=== PATIENT | female | born 1995 | race African-American/Black ===

== ENCOUNTER 2017-05-19 09:30 | Inpatient (IN) | payer MEDICAID ==
[~2017-05-19] VITALS: Ht 170.2 cm; Wt 94.3 kg
--- NOTE | ~2017-05-19 | DS ---
PATIENT:GREGOR DOWNING :89 MEDICAL RECORD: [id number] DISCHARGE SUMMARY ADMISSION DATE: 05/19/17 DISCHARGE DATE: 05/21/17 DATE OF ADMISSION: 05/19/2017 DATE OF DISCHARGE: 05/21/2017 ADMISSION DIAGNOSIS: Mild preeclampsia. DISCHARGE DIAGNOSIS: Mild clinic preeclampsia, resolved. ATTENDING: James Hinton MD PROCEDURE: Induction of labor with vaginal delivery. HISTORY OF PRESENT ILLNESS AND REASON FOR HOSPITALIZATION: See the H&P in the chart. SUMMARY OF HOSPITALIZATION: The patient was admitted and underwent induction of labor without incident. The patient has recovered well and at time of this dictation the last blood pressure is 108/57. The patient will be discharged home later today. Standard precautions have been reviewed. She will follow up in 2 weeks at [facility]. DISCHARGE MEDICATIONS: Will include ibuprofen for pain. TRANSINT:[id number] Voice Confirmation ID: [id number] DOCUMENT ID: [id number] JAMES HINTON MD at 1226 CC: [id number] DICTATION DATE: 05/21/17226 ELEMENTARY SECRETARY: 05/22/17 0003 DIS IN 05/21/17 [id number] [place] [address]
--- NOTE | ~2017-05-19 | OP ---
PATIENT NAME: GREGOR DOWNING MEDICAL RECORD: [id number] :89 LOCATION:[id number] ADMISSION DATE:05/19/17 SURGEON: JAMES HINTON MD DATE OF OPERATION: 05/19/2017 Delivery Note PREDELIVERY DIAGNOSIS: Preeclampsia at term. POSTDELIVERY DIAGNOSIS: Preeclampsia at term, mother delivered. PROCEDURE: Induction of labor with vaginal delivery. ATTENDANT: James Hinton MD ANESTHETIC: 10 cc of 1% lidocaine without epinephrine. FINDINGS: Viable female , vertex presentation, Apgars 9 and 9, weight 3035 grams. Second degree laceration with 3-0 Vicryl and 3-0 chromic repair. A 4-0 chromic used to repair perineal body. Placenta spontaneous and intact. ESTIMATED BLOOD LOSS: 350. DISPOSITION: Mother and infant recovered in the room. TRANSINT:[id number] Voice Confirmation ID: [id number] DOCUMENT ID: [id number] JAMES HINTON MD at 1821 CC: [id number] DICTATION DATE: 05/19/17 175 DROP HAMMER MECHANIC: 05/19/17 2143 ADM IN [facility] [address] [place] [address]
[2017-05-19 11:33] VITALS: BP 107/61; Ht 170.2 cm; Wt 94.3 kg
[2017-05-19 11:44] LABS: HEMATOCRIT 30.2 % (36.0-48.0); HEMOGLOBIN 9.2 g/dL (12-16); MCHC 30.5 g/dL (31.0-37.0); MCV 68.8 fL (80.0-100.0); PLATELET COUNT 168 10x3/uL (130-400); RBC 4.39 10x6/uL (4.00-5.40); RDW 15.7 % (11.5-14.5); WBC 7.6 10x3/uL (4.8-10.8)
[2017-05-19 11:47] LABS: UDS - AMPHET NEGATIVE QUAL (NEGATIVE); UDS - BARB NEGATIVE QUAL (NEGATIVE); UDS - BENZO NEGATIVE QUAL (NEGATIVE); UDS - COCAINE NEGATIVE QUAL (NEGATIVE); UDS - OPIATE NEGATIVE QUAL (NEGATIVE); UDS - PCP NEGATIVE QUAL (NEGATIVE); UDS - THC NEGATIVE QUAL (NEGATIVE)
[2017-05-19 11:59] LABS: APPEARANCE CLEAR (CLEAR); BILIRUBIN NEGATIVE (NEGATIVE); COLOR YELLOW (YELLOW); GLUCOSE NEGATIVE (NEGATIVE); KETONE NEGATIVE (NEGATIVE); NITRITE NEGATIVE (NEGATIVE); PROTEIN TRACE mg/dL (NEGATIVE); RED CELLS - URINE 0-5 /hpf (0-5); UROBILINOGEN NORMAL (NORMAL); WHITE CELLS - URINE 0-5 /hpf (0-5)
[2017-05-19 12:00] LABS: EPITHELIAL CELLS 0-5 /hpf (0-5)
[2017-05-19 12:01] LABS: ALBUMIN 2.6 g/dL (3.4-5.0); ALKALINE PHOSPHATASE 119 U/L (46-116); ALT (SGPT) 13 U/L (10-68); BILIRUBIN - INDIRECT 0.25 mg/dL (0.00-1.00); CALC OSMOLALITY 269 mosm/kg (275-300); CALCIUM 8.4 mg/dL (8.5-10.1); CARBON DIOXIDE 20.1 mmol/L (21.0-32.0); CHLORIDE - SERUM 102 mmol/L (98-107); CREATININE - SERUM 0.5 mg/dL (0.6-1.3); GLUCOSE 79 mg/dL (74-106); POTASSIUM - SERUM 3.5 mmol/L (3.5-5.1); PROTEIN - SERUM 7.1 g/dL (6.4-8.2); SODIUM 136 mmol/L (136-145); UREA NITROGEN 9 mg/dL (7-18); URIC ACID 2.8 mg/dL (2.6-7.2); eGFR NON AFRICAN AMERICAN > 90 mL/min (90-120)
[2017-05-19 12:02] LABS: BILIRUBIN - DIRECT 0.05 mg/dL (0.00-0.30)
[2017-05-19 12:04] LABS: BACTERIA MODERATE /hpf (NONE SEEN); MUCUS <1+ /lpf (NONE SEEN)
[2017-05-19 19:04] VITALS: BP 116/72
[2017-05-19 23:51] VITALS: BP 111/67
[2017-05-20 05:14] LABS: RAPID PLASMA REAGIN Non Reactive (Non Reactive)
[2017-05-20 08:28] VITALS: BP 104/56
[2017-05-20 19:30] VITALS: BP 108/57
[2017-05-21 07:11] VITALS: BP 111/66
[2017-05-21] MEDS ORDERED: IBUPROFEN800 MG PO (10:00)
== END 2017-05-21 18:13 | disposition home or self-care (01) | DRG 775 ==
LOC: D.LD 09:30
PROVIDERS: Obstetrics & Gynecology
PROC: 10E0XZZ Delivery of Products of Conception, External Approach (ICD-10-PCS; principal; 2017-05-19)
PROC: 0KQM0ZZ Repair Perineum Muscle, Open Approach (ICD-10-PCS; 2017-05-19)
DX: O14.94 Unspecified pre-eclampsia, complicating childbirth (principal); Z3A.38 38 weeks gestation of pregnancy; Z37.0 Single live birth; O99.824 Streptococcus B carrier state complicating childbirth; O70.1 Second degree perineal laceration during delivery

== ENCOUNTER 2018-04-12 20:43 | Emergency (ER) | payer MEDICAID ==
[~2018-04-12] VITALS: Ht 170.2 cm; Wt 77.3 kg
[~2018-04-12 20:43] MED LIST: IBUPROFEN800 MG PO
[2018-04-12 21:10] VITALS: BP 115/74; Ht 170.2 cm; Wt 77.3 kg
[2018-04-12] MEDS ORDERED: MEDROL DOSE PACK4 MG PO (22:16)
== END 2018-04-12 22:35 | disposition home or self-care (01) ==
LOC: D.ER 20:43
DX: J02.0 Streptococcal pharyngitis (principal); R50.9 Fever, unspecified

== ENCOUNTER 2018-08-03 01:16 | Emergency (ER) | payer MEDICAID ==
[~2018-08-03] VITALS: Ht 170.2 cm; Wt 81.4 kg
[~2018-08-03 01:16] MED LIST changes: +MEDROL DOSE PACK4 MG PO
[2018-08-03 01:23] VITALS: Ht 170.2 cm; Wt 81.4 kg
[2018-08-03] MEDS ORDERED: AMOXICILLIN500 M1 PO (01:55)
[2018-08-03 02:35] VITALS: BP 122/76
== END 2018-08-03 02:35 | disposition home or self-care (01) ==
LOC: D.ER 01:16
DX: J02.0 Streptococcal pharyngitis (principal)